=== PATIENT | male | born 1950 | race Caucasian/White ===

== ENCOUNTER 2020-08-07 12:27 | Outpatient (REF) | payer MEDICARE, SELFPAY ==
[2020-08-08 18:17] LABS: Lutenizing Hormone 4.9 mIU/mL (1.6-15.2)
== END 2020-08-07 12:28 | disposition home or self-care (01) ==
LOC: HO.WFDLDS 12:27
PROVIDERS: PCP Family Medicine; Visit Provider Family Medicine
DX: I10 Essential (primary) hypertension (principal); R20.3 Hyperesthesia; H53.9 Unspecified visual disturbance; R79.89 Other specified abnormal findings of blood chemistry
CPT/HCPCS: 83001; 83002; 84146

== ENCOUNTER 2021-12-10 11:56 | Outpatient (REF) | payer MEDICARE, SELFPAY ==
[2021-12-10 13:53] LABS: Alanine Aminotransferase 15 U/L (0-40); Albumin Level 4.1 g/dL (3.5-5.0); Alkaline Phosphatase 50 U/L (39-117); Anion Gap 12 (12-20); Aspartate Amino Transferase 21 U/L (5-37); Bilirubin Total 0.8 mg/dL (0.0-1.0); Blood Urea Nitrogen 14 mg/dL (9-16); Calcium 9.3 mg/dL (8.4-10.2); Carbon Dioxide 30 mmol/L (22-29); Chloride 103 mmol/L (96-108); Cholesterol 161 mg/dL; Estimated Glomerular Filt Rate > 60; Glucose Fasting 97 mg/dL (60-99); HDL Cholesterol 59 mg/dL; LDL Cholesterol Calculated 91 mg/dl; Potassium 4.2 mmol/L (3.3-5.1); Sodium 141 mmol/L (135-145); Total Protein 6.9 g/dL (6.5-8.0); Triglycerides 58 mg/dL
[2021-12-10 14:05] LABS: Appearance Urine CLEAR; Color Urine YELLOW; Glucose Urine UA NEG (NEG); Leukocyte Esterase Urine NEG (NEG); Nitrite Urine NEG (NEG); PH 7.5 (5.0-8.0); Specific Gravity - Urine 1.015 (1.005-1.025); Urine Blood NEG (NEG); Urine Ketones NEG (NEG); Urine Protein NEG (NEG-TRACE)
[2021-12-10 14:15] LABS: TSH reflex Free T4 1.01 uIU/mL (0.32-4.0)
[2021-12-10 14:29] LABS: Creatinine Urine 79.87 mg/dL; Microalbumin Urine < 5.0 mg/L
[2021-12-10 14:39] LABS: Prostate Specific Antigen Scr 0.68 ng/mL (<0.05-4.0)
== END 2021-12-10 11:57 | disposition home or self-care (01) ==
LOC: HO.WFDLDS 11:56
PROVIDERS: Visit Provider Family Medicine
DX: Z00.00 Encounter for general adult medical examination without abnormal findings (principal); Z12.5 Encounter for screening for malignant neoplasm of prostate; I10 Essential (primary) hypertension
CPT/HCPCS: 36415; 80053; 80061; 81003; 82043; 84153; 84443

== ENCOUNTER 2022-08-16 12:14 | Outpatient (REF) | payer MEDICARE, SELFPAY ==
[2022-08-19 22:12] LABS: Lyme Abs Screen <0.90 index
== END 2022-08-16 12:15 | disposition home or self-care (01) ==
LOC: HO.LAB 12:14
PROVIDERS: PCP Family Medicine; Visit Provider Family Medicine
DX: T14.8XXA Other injury of unspecified body region, initial encounter (principal); W57.XXXA Bitten or stung by nonvenomous insect and other nonvenomous arthropods, initial encounter
CPT/HCPCS: 36415; 86617; 86618

== ENCOUNTER 2023-04-22 15:29 | Outpatient (AMB) | payer MEDICARE, SELFPAY ==
--- NOTE | 2023-04-22 15:31 | A.OFFPC_ITS ---
Vital Signs 04/22/23 15:34 Height 5 ft 8 in Weight 152 lb 4 oz BMI 23.1 BP 98/64 Blood Pressure Location Lt brachial Position Sitting Respiration 12 Pulse 71 Pulse Source Pulse Oximeter Temp 98.1 F Temp Source Temporal Artery Scan Pulse Oximetry (%) 99 Oxygen Delivery Method Room Air Intake Visit Reasons: earwax removal Intake Note: Patient states that his right ear is the one giving problems, patient states hes tried softening the wax himself and attempted to remove it but was unsuccessful. 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 Accompanied by: Self / Same As Patient Allergies lisinopril Allergy (Unknown, Verified 04/22/23 15:48) cough Medication List - Last Reconciled 04/22/23 by Jonathan Brooks CNP atorvastatin 20 mg PO DAILY 90 days hydrochlorothiazide 25 mg PO DAILY losartan 100 mg PO DAILY 90 days Tobacco use date assessed: 01/09/22 Fall risk assessment: No Falls in past year Last assessed Fall Risk: 04/22/23 Dental Screening Dental Screen Date: 04/22/23 Did you have a dental visit in the last 12 months?: Yes Did you have a dental problem in the last 6 months where you did not have access to dental care?: No Was dental information given to patient?: Patient has dentist HPI HPI Comments History of Present Illness Details 72-year-old male presents with c/o impaired hearing of the right ear for the past few weeks. No pain or other symptoms He used an [id number] ear drops without improvement PFSH Surgical History (Updated 04/22/23 @ 15:51 by Mini Lopez MA) H/O microdiscectomy History of inguinal herniorrhaphy S/P ORIF (open reduction internal fixation) fracture Family History Family/Other Cardiovascular disease High cholesterol Mild late onset Alzheimer's dementia Sister Stroke Social History Housing: House Patient Tobacco Use Status: Never used Tobacco e-Cigarette/Vaping Use: Never Used Use of substances other than those prescribed or required for medical reasons: No service: No Current occupational status: retired Current occupational exposures/hazards: No Cognitive needs: No Hearing needs: Yes Vision needs: Yes Questionnaire PHQ-9 Over the last 2 weeks, how often have you been bothered by any of the following problems? 1. Little interest or pleasure in doing things: several days 2. Feeling down, depressed, or hopeless: several days 3. Trouble falling or staying asleep, or sleeping too much: not at all 4. Feeling tired or having little energy: not at all 5. Poor appetite or overeating: not at all 6. Feeling bad about yourself - or that you are a failure or have let yourself or your family down: not at all 7. Trouble concentrating on things, such as reading the newspaper or watching television: not at all 8. Moving or speaking so slowly that other people could have noticed. Or the opposite - being so fidgety or restless that you have been moving around a lot more than usual: not at all 9. Thoughts that you would be better off or of hurting yourself in some way: not at all Total score: 2 Source: Developed by Drs. Alireza Curry, Irena Caro, Michael Mackay and colleagues, with an educational lisa from [email or web address]. Thrive Questionnaire Date Thrive assessed: 04/22/23 I am a: Patient What is your living situation today?: I have a steady place to live Within the past 12 months, did the food you bought not last and you didn't have the money to get more?: Never true Within the past 12 months, did you worry whether your food would run out before you got money to buy more?: Never true Do you have trouble paying for medicines?: No Do you have trouble getting transportation to medical appointments?: No Do you have trouble paying your heating and electricity bill?: No Do you have trouble taking care of your child, family member or friend?: No Do you have trouble with day-to-day activities such as bathing, preparing meals, shopping, managing finances, etc.?: No Are you currently unemployed and looking for a job?: No Are you interested in more education?: No Please select the resources that you would like help with: None Currently or been in a relationship where the following occur: no concerns reported AUDIT C Alcohol Use Questionnaire (AUDIT-C) 1. How often do you have a drink containing alcohol?: 2-4 times a month 2. How many drinks containing alcohol do you have on a typical day when you are drinking?: 1 or 2 3. How often do you have six or more drinks on one occasion?: Never Total Score: 2 HILLARY-7 AMB Questionnaire HILLARY-7 Date HILLARY - 7 assessed: 04/22/23 Feeling nervous, anxious, or on edge: 0 = Not at all Not being able to stop or control worryin = Not at all Worrying too much about different things: 1 = Several days Trouble relaxin = Not at all Being so restless that it is hard to sit still: 0 = Not at all Becoming easily annoyed or irritable: 1 = Several days Feeling afraid as if something awful might happen: 0 = Not at all Total HILLARY-7 score (0-4 normal; 5-9 mild; 10-14 moderate; 15-21 severe): 2 Source: Developed by Drs. Alireza Curry, Irena Caro, Michael Mackay and colleagues, with an educational lisa from [email or web address]. Review of Systems Const Details: Const Denies chills, Denies fatigue, Denies fever(s), Denies headache(s) and Denies weakness ENT Reports as per HPI Resp Denies cough, Denies dyspnea, Denies wheezing and Denies other (shortness of breath) Cardio Denies chest pain, Denies lightheadedness, Denies dyspnea and Denies other (palpitations) Neuro Denies dizziness, Denies headache(s), Denies numbness, Denies tingling and Denies weakness Endo Denies fatigue Aller/Immun Denies wheezing Physical exam (Primary Care) Vital Signs: Last Vital Signs Temp 98.1 F 04/22/23 15:34 Pulse 71 04/22/23 15:34 Resp 12 04/22/23 15:34 BP 98/64 04/22/23 15:34 Pulse Ox 99 04/22/23 15:34 Oxygen Delivery Method Room Air 04/22/23 15:34 BMI result Body Mass Index 23.1 Tobacco/Smoking Status: Tobacco use Status Tobacco use date assessed 01/09/22 04/22/23 15:33 Patient Tobacco Use Status Never used Tobacco 04/22/23 15:54 e-Cigarette/Vaping Use Never Used 04/22/23 15:54 PHQ-9: PHQ-9 Score PHQ-9: Total score 2 04/22/23 16:00 Thrive Assessment: Date of Thrive Assessment Date Thrive assessed 04/22/23 04/22/23 16:00 Currently or been in a relationship where the following occur: no concerns reported Const Other: Const General: well developed; No acute distress Nutritional Appearance: well nourished Orientation/consciousness: patient oriented x3 HEENT Head is normocephalic Impacted cerumen of the right ear occluding the TM, no erythema, edema, or effusion, ear canal is normal. Left TM and ear canal is normal Nasal turbinates and oropharynx are pink and moist Sinuses are nontender with palpation No auricular or cervical lymphadenopathy Resp Effort & Inspection: normal respiratory effort Auscultation: clear to auscultation bilaterally Cardio Rate: regular rate Rhythm: regular rhythm Heart sounds: S1 normal heart sound present, S2 normal heart sound present, no gallops, no murmurs and no rubs Bruits: no abdominal aortic bruits and no carotid bruits Neuro General: patient oriented x3 and gait normal, no focal neuro deficit Cranial nerves: Yes Equal, round and reactive pupils present Psych Affect: normal affect Assessment and Plan Assessment & Plan (1) Impacted cerumen, right ear: Code(s): H61.21 - Impacted cerumen, right ear Plan: 72-year-old male presents with c/o impaired hearing of the right ear for the past few weeks. No pain or other symptoms Impacted cerumen of the right ear occluding the TM, no erythema, edema, or effusion, ear canal is normal. Left TM and ear canal is normal Normal right TM and ear canal following irrigation. Reports significant right hearing improvement Follow-up with symptoms or concerns Verbalized understanding and agreed with treatment plan. Medications: Changed From hydrochlorothiazide 25 mg PO DAILY 90 days 90 tabs 4RF To hydrochlorothiazide 25 mg PO DAILY Coding Level of Care Code Est Pt Level 3 (89181) Diagnoses Impacted cerumen, right ear H61.21 Time Spent (min) 25
[2023-04-22 15:34] VITALS: BP 98/64; PULSE 71; RESP 12; TEMP 36.7; O2SAT 99; BMI 23.1
== END 2023-04-22 16:35 | disposition home or self-care (01) ==
PROVIDERS: PCP Family Medicine; Visit Provider Nurse Practitioner Family
DX: H61.21 Impacted cerumen, right ear (principal)
CPT/HCPCS: 99213

== ENCOUNTER 2023-05-23 10:59 | Outpatient (AMB) | payer MEDICARE, SELFPAY ==
[2023-05-23 11:07] VITALS: BP 118/70; PULSE 70; O2SAT 97; BMI 22.7
--- NOTE | 2023-05-23 11:07 | A.OFFPC_ITS ---
Vital Signs 05/23/23 11:07 Height 5 ft 8 in Weight 149 lb BMI 22.7 BP 118/70 Blood Pressure Location Lt brachial Position Sitting Pulse 70 Pulse Source Pulse Oximeter Pulse Oximetry (%) 97 Oxygen Delivery Method Room Air Intake Visit Reasons: CPE with f/u labs and health maintenance Intake Note: Patient is here for his physical today, he states he has had fatigue, lighthea dedness, orthostatic during high temperatures. Patient has issue of a sebacious cyst that may need to be packed in. Allergies lisinopril Allergy (Unknown, Verified 05/23/23 11:18) cough Tobacco use date assessed: 01/09/22 Fall risk assessment: No Falls in past year Last assessed Fall Risk: 05/23/23 Dental Screening Dental Screen Date: 05/23/23 Did you have a dental visit in the last 12 months?: Yes Did you have a dental problem in the last 6 months where you did not have access to dental care?: No Was dental information given to patient?: No HPI CPE with f/u labs and health maintenance HPI Details 72 y/o male presents for an extended exam with f/u labs and health maintenance. No recent labs to review. Blood pressure today is 118/70. He is on hydrochlorothiazide 25mg and losartan 100mg daily. He reports fatigue that started about 3 weeks ago. He reports he had felt lightheaded and orthostatic during high temperatures. [facility] Surgical History (Updated 04/22/23 @ 15:51 by Mini Lopez MA) H/O microdiscectomy History of inguinal herniorrhaphy S/P ORIF (open reduction internal fixation) fracture Family History Family/Other Cardiovascular disease High cholesterol Mild late onset Alzheimer's dementia Sister Stroke Social History Housing: House Patient Tobacco Use Status: Never used Tobacco e-Cigarette/Vaping Use: Never Used service: No Current occupational status: retired Current occupational exposures/hazards: No Cognitive needs: No Hearing needs: Yes Vision needs: Yes Questionnaire Thrive Questionnaire Date Thrive assessed: 04/22/23 HILLARY-7 AMB Questionnaire HILLARY-7 Date HILLARY - 7 assessed: 04/22/23 Source: Developed by Irena BessW. Gordo, Michael Mackay and colleagues, with an educational lisa from [employer]. Review of Systems Const Denies chills, Denies fatigue, Denies fever(s), Denies headache(s) and Denies weakness Eyes Denies change in vision ENT Denies dizziness, Denies headache(s), Denies hearing loss, Denies nasal congestion, Denies sinus pain, Denies sinus pressure and Denies sore throat Card Denies chest pain, Denies lightheadedness, Denies dyspnea and Denies other (palpitations) Resp Denies cough, Denies dyspnea and Denies wheezing GI Denies abdominal pain, Denies melena, Denies hematochezia, Denies change in bowel habits, Denies dyspepsia and Denies nausea Denies hematuria and Denies dysuria Musc Denies abnormal gait, Denies myalgias, Denies arthralgias, Denies numbness and Denies tingling Skin/Breast Denies rash, Denies unusual bruising and Denies wounds Neuro Denies abnormal gait, Denies dizziness, Denies headache(s), Denies memory loss, Denies numbness, Denies Sensory deficit (Neuro), Denies tingling and Denies weakness Psych Denies anxiety, Denies depression and Denies memory loss Endo Denies cold intolerance, Denies fatigue, Denies heat intolerance, Denies polydipsia and Denies polyuria Donald/Lymph Denies easy bleeding and Denies easy bruising Aller/Immun Denies wheezing Physical exam (Primary Care) Vital Signs: Last Vital Signs Pulse 70 05/23/23 11:07 BP 118/70 05/23/23 11:07 Pulse Ox 97 05/23/23 11:07 Oxygen Delivery Method Room Air 05/23/23 11:07 BMI result Body Mass Index 22.7 Tobacco/Smoking Status: Tobacco use Status Tobacco use date assessed 01/09/22 05/23/23 11:09 Patient Tobacco Use Status Never used Tobacco 05/23/23 11:09 e-Cigarette/Vaping Use Never Used 05/23/23 11:09 Thrive Assessment: Date of Thrive Assessment Date Thrive assessed 04/22/23 05/23/23 11:09 Const General: no acute distress, well developed, alert and awake Nutritional Appearance: well nourished Orientation/consciousness: patient oriented x3 HENMT Head: Yes normocephalic and Yes atraumatic Ears: hearing grossly normal bilaterally and TM's normal bilaterally General nose exam: Normal external nose present and Normal nares present Mouth: Normal oral and palatal mucosa present and moist mucous membranes Teeth and gingiva: dentition normal Throat: Yes posterior oropharynx normal Eyes General: appearance normal, both eyes and all related structures Pupils: Equal, round and reactive pupils present and Pupil accommodation reflex normal EOM: EOMs intact bilaterally Neck Neck: Yes normal visual inspection, Yes no lymphadenopathy and Yes trachea midline Thyroid: Thyroid normal Carotids: no bruits Lymphatic: no lymphadenopathy noted Chest Chest palpation & inspection: normal inspection of the chest Resp Effort & Inspection: normal respiratory effort Auscultation: clear to auscultation bilaterally Cardio Rate: regular rate Rhythm: regular rhythm Heart sounds: S1 normal heart sound present, S2 normal heart sound present, no gallops, no murmurs and no rubs Bruits: no abdominal aortic bruits and no carotid bruits GI Palpation (GI): No Abdominal aortic bruit present, Soft to palpation, nontender, No hepatosplenomegaly present and No Rebound tenderness present Auscultation: normal bowel sounds General: Yes no CVA tenderness Back/Spine/Pelvis Back: no CVA tenderness Cervical Spine: cervical ROM normal and No Cervical spine tenderness Thoracic/Lumbar Spine: thoraco-lumbar ROM normal, No pain with thoraco-lumbar ROM, No thoracic spinal tenderness and No lumbar spinal tenderness Skin Other: Upper back Open wound 1.5cm in length and a cm in depth Lesions: no lesions Rashes: no rashes Trauma: no lacerations or abrasions Wounds: no wounds Nails: normal Neuro General: patient oriented x3 Cranial nerves: Yes Equal, round and reactive pupils present Cognition (Neuro): normal cognition Gait exam (Neuro): Normal gait present Motor exam (neuro): 5/5 motor strength present throughout Sensory Exam: No Sensory deficit (Neuro) Deep tendon reflexes (DTR's): Right patellar reflex intensity grade: 2+ and Left patellar reflex intensity grade: 2+ Extrem General: Yes normal to inspection and No edema Psych Appearance: grossly normal Affect: normal affect Attitude: cooperative Thought process: Normal thought process present Assessment and Plan Assessment & Plan (1) Open wound: Code(s): T14.8XXA - Other injury of unspecified body region, initial encounter Plan: Open wound at upper back after a sebaceous cyst excision Given the size, this is at high risk of infection or poor healing Mild fibrinous exudate in base of wound Prepped wound in usual fashion with iodine and a fenestrated drape Flushed wound with sterile water and packed wound with Xeroform gauze using forceps and swab on stick Applied Telfa pad dressing over wound and tape Patient tolerated procedure well He can apply new packing every 3 days and dressing changes daily Can shower and allow water to run over wound prior to changes of packing Watch for S/S infection He will return after his brief vacation for evaluation of the wound and if not improving, will refer him to Wound Care He can call me if any signs of infection and I will send script for an antibiotic. (2) Fatigue: Code(s): R53.83 - Other fatigue Plan: Patient had some mild fatigue a few weeks ago during severe hot weather and he is on hydrochlorothiazide. He noted that his blood pressures were rather low and held his blood pressure medications for few days. Hydrate well Blood pressure today is okay He can let me know if he is having ongoing problems with this Checking labs (3) Essential hypertension: Code(s): I10 - Essential (primary) hypertension Plan: Blood pressure appears well controlled. Goal is less than 140/90 Continue current medications (4) Screening for colon cancer: Code(s): Z12.11 - Encounter for screening for malignant neoplasm of colon Plan: His geology professor is Dr. Yao. Will request records and patient is due to follow-up I will make a referral (5) Screening for prostate cancer: Code(s): Z12.5 - Encounter for screening for malignant neoplasm of prostate Plan: Checking PSA. Digital rectal exam today reveals a normal sized prostate with smooth contours and no irregularities. (6) Sebaceous cyst: Code(s): L72.3 - Sebaceous cyst Plan: This was excised. Patient now has an open wound-see above (7) Adult general medical exam: Code(s): Z00.00 - Encounter for general adult medical examination without abnormal findings Plan: 72-year-old male presents for complete physical exam Encouraged healthy diet with active lifestyle and plenty of exercise Orders: Orders Comprehensive [place]. Panel Fast Today Z00.00 - Encounter for general adult medical examination without abnormal findings Lipid Panel Today Z00.00 - Encounter for general adult medical examination without abnormal findings Prostate Specific Antigen Scr Today Z12.5 - Encounter for screening for malignant neoplasm of prostate TSH reflex Free T4 Today Z00.00 - Encounter for general adult medical examinatio n without abnormal findings Microalbumin, Random (w Creat) Today I10 - Essential (primary) hypertension Complete Blood Count Auto Diff Today Z00.00 - Encounter for general adult medical examination without abnormal findings UA and rflx microscopic Today Z00.00 - Encounter for general adult medical examination without abnormal findings Coding Level of Care Code Est Pt Level 4 (97912) Diagnoses Open wound T14.8XXA Fatigue R53.83 Essential hypertension I10 Screening for colon cancer Z12.11 Screening for prostate cancer Z12.5 Sebaceous cyst L72.3 Adult general medical exam Z00.00
== END 2023-05-23 13:06 | disposition home or self-care (01) ==
PROVIDERS: PCP Family Medicine; Visit Provider Family Medicine
DX: T14.8XXA Other injury of unspecified body region, initial encounter (principal); R53.83 Other fatigue; I10 Essential (primary) hypertension; Z12.11 Encounter for screening for malignant neoplasm of colon; Z12.5 Encounter for screening for malignant neoplasm of prostate; L72.3 Sebaceous cyst; Z00.00 Encounter for general adult medical examination without abnormal findings
CPT/HCPCS: 99214

== ENCOUNTER 2023-05-26 11:49 | Outpatient (REF) | payer MEDICARE, SELFPAY ==
[2023-05-26 12:00] LABS: MANUAL DIFF FLAG NO
[2023-05-26 13:51] LABS: Basophils Absolute Auto 0.1 X10*3/uL (0.0-0.2); Eosinophils Absolute Auto 0.2 X10*3/uL (0.0-0.4); Eosinophils Percent Auto 4.7 % (0-4); Hematocrit 36.4 % (42.0-52.0); Hemoglobin 11.9 g/dl (14.0-18.0); Imm Gran Abs Auto 0.02 X10*3/uL (0.00-0.03); Imm Gran Pct Auto 0.4 % (0.0-0.4); Lymphocytes Absolute Auto 1.1 X10*3/uL (1.2-4.9); Lymphocytes Percent Auto 21.8 % (20-40); Mean Corpuscular HGB Conc 32.7 g/dl (31.0-36.0); Mean Corpuscular Hemoglobin 30.5 pg (27.0-33.0); Mean Corpuscular Volume 93.3 fL (80.0-98.0); Mean Platelet Volume 10.9 fL (9.4-12.4); Monocytes Absolute Auto 0.5 X10*3/uL (0.1-1.2); Monocytes Percent Auto 8.8 % (2-11); Neutrophils Absolute Auto 3.2 x10*3/uL (2.0-8.3); Neutrophils Percent Auto 63.3 % (45-73); Platelet Count 223 X10*3/uL (160-400); Red Cell Distribution Width 13.1 % (11.0-16.0); White Blood Count 5.1 X10*3/uL (4.8-10.8)
[2023-05-26 14:27] LABS: Appearance Urine Clear; Color Urine Dark Yellow; Glucose Urine UA Negative (Negative); Leukocyte Esterase Urine Negative (Negative); Nitrite Urine Negative (Negative); PH 5.5 (5.0-9.0); Specific Gravity - Urine >= 1.030 (1.005-1.025); Urine Blood Negative (Negative); Urine Ketones Trace mg/dL (Negative); Urine Protein Trace mg/dL (Neg-Trace)
[2023-05-26 14:54] LABS: Prostate Specific Antigen Scr 0.66 ng/mL (<0.05-4.0)
[2023-05-27 02:07] LABS: Alanine Aminotransferase 12 U/L (0-40); Albumin Level 3.9 g/dL (3.5-5.0); Alkaline Phosphatase 49 U/L (39-117); Anion Gap 13 (12-20); Aspartate Amino Transferase 17 U/L (5-37); Bilirubin Total 0.8 mg/dL (0.0-1.0); Blood Urea Nitrogen 18 mg/dL (9-16); Carbon Dioxide 27 mmol/L (22-29); Chloride 107 mmol/L (96-108); Cholesterol 137 mg/dL; Estimated Glomerular Filt Rate > 60; Glucose Fasting 85 mg/dL (60-99); HDL Cholesterol 51 mg/dL; LDL Cholesterol Calculated 77 mg/dl; Potassium 3.6 mmol/L (3.3-5.1); Sodium 143 mmol/L (135-145); TSH reflex Free T4 0.74 uIU/mL (0.32-4.0); Total Protein 6.7 g/dL (6.5-8.0); Triglycerides 47 mg/dL
[2023-05-27 02:42] LABS: Creatinine Urine 351.42 mg/dL; Microalbum/Creatinine Ratio Ur 3.9 ug/mg cr
== END 2023-05-26 11:50 | disposition home or self-care (01) ==
LOC: HO.LAB 11:49
PROVIDERS: PCP Family Medicine; Visit Provider Family Medicine
DX: Z00.00 Encounter for general adult medical examination without abnormal findings (principal); Z12.5 Encounter for screening for malignant neoplasm of prostate; I10 Essential (primary) hypertension
CPT/HCPCS: 36415; 80053; 80061; 81003; 82043; 84153; 84443; 85025

== ENCOUNTER 2023-05-26 13:40 | Outpatient (AMB) | payer MEDICARE, SELFPAY ==
[2023-05-26 13:48] VITALS: BP 108/64; PULSE 88; RESP 12; TEMP 36.7; O2SAT 99; BMI 22.6
--- NOTE | 2023-05-26 13:48 | MHC.PC.OV ---
Vital Signs 05/26/23 13:48 Height 5 ft 8 in Weight 148 lb 6 oz BMI 22.6 BP 108/64 Blood Pressure Location Rt brachial Position Sitting Respiration 12 Pulse 88 Pulse Source Pulse Oximeter Temp 98.1 F Temp Source Temporal Artery Scan Pulse Oximetry (%) 99 Oxygen Delivery Method Room Air Intake Visit Reasons: Wound Follow Up Dairy Chemist Required: No Accompanied by: Self / Same As Patient Allergies lisinopril Allergy (Unknown, Verified 05/26/23 14:13) cough Medication List - Last Reconciled 05/26/23 by Jonathan Brooks CNP atorvastatin 20 mg PO DAILY 90 days hydrochlorothiazide 25 mg PO DAILY losartan 100 mg PO DAILY 90 days Tobacco use date assessed: 05/26/23 Fall risk assessment: No Falls in past year Last assessed Fall Risk: 05/26/23 Dental Screening Dental Screen Date: 05/26/23 Did you have a dental visit in the last 12 months?: Yes Did you have a dental problem in the last 6 months where you did not have access to dental care?: No Was dental information given to patient?: Patient has dentist HPI HPI Comments History of Present Illness Details 72-year-old male presents for wound to upper back follow-up. He has an open wound to upper back after sebaceous excision. The wound was evaluated and treated by his PCP 4 days ago. Wound was packed with Xeroform gauze by his PCP, followed by Telfa and dry sterile dressing. Patient was advised to perform wound care and dressing change daily and apply new packing every 3 days. He was advised to return for follow-up or concerns of wound infection. He notes he has not changed the dressing. He denies pain, fever, chills, body aches, fatigue, weakness. He states that he will be traveling out of state on Friday and will return next Friday. He will follow-up for wound evaluation when he returns. [facility] Medical History No pertinent past medical history Surgical History H/O microdiscectomy H/O total cystectomy History of inguinal herniorrhaphy S/P ORIF (open reduction internal fixation) fracture Family History Family/Other Cardiovascular disease High cholesterol Mild late onset Alzheimer's dementia Sister Stroke Social History Housing: House Patient Tobacco Use Status: Never used Tobacco e-Cigarette/Vaping Use: Never Used service: No Current occupational status: retired Current occupational exposures/hazards: No Cognitive needs: No Hearing needs: No Vision needs: No Questionnaire Thrive Questionnaire Date Thrive assessed: 04/22/23 HILLARY-7 AMB Questionnaire HILLARY-7 Date HILLARY - 7 assessed: 04/22/23 Source: Developed by Drs. Alireza Curry, Irena Caro, Michael Mackay and colleagues, with an educational lisa from [employer]. Review of Systems Const Details: Const Denies chills, Denies fatigue, Denies fever(s), Denies headache(s) and Denies weakness ENT Denies dizziness and Denies headache(s) Card Denies chest pain, Denies lightheadedness, Denies dyspnea and Denies other (Palpitations) Resp Denies cough, Denies dyspnea, Denies wheezing and Denies other ( shortness of breath) GI Denies abdominal pain, Denies melena, Denies hematochezia, Denies change in bowel habits, Denies dyspepsia and Denies nausea Denies hematuria and Denies dysuria Musc Denies abnormal gait, Denies myalgias, Denies arthralgias, Denies numbness and Denies tingling Skin/Breast Reports wound, Denies rash, Denies unusual bruising Neuro Denies abnormal gait, Denies dizziness, Denies headache(s), Denies memory loss, Denies numbness, Denies Sensory deficit (Neuro), Denies tingling and Denies weakness Psych Denies anxiety, Denies depression, Denies memory loss Endo Denies cold intolerance, Denies fatigue, Denies heat intolerance, Denies polydipsia and Denies polyuria Aller/Immun Denies wheezing Physical exam (Primary Care) Vital Signs: Last Vital Signs Temp 98.1 F 05/26/23 13:48 Pulse 88 05/26/23 13:48 Resp 12 05/26/23 13:48 BP 108/64 05/26/23 13:48 Pulse Ox 99 05/26/23 13:48 Oxygen Delivery Method Room Air 05/26/23 13:48 BMI result Body Mass Index 22.6 Tobacco/Smoking Status: Tobacco use Status Tobacco use date assessed 05/26/23 05/26/23 13:57 Patient Tobacco Use Status Never used Tobacco 05/26/23 13:57 e-Cigarette/Vaping Use Never Used 05/26/23 13:57 Thrive Assessment: Date of Thrive Assessment Date Thrive assessed 04/22/23 05/26/23 13:57 Const Other: General: no acute distress and well developed Nutritional Appearance: well nourished Orientation/consciousness: patient oriented x3 HENMT Head: Yes normocephalic and Yes atraumatic Eyes General: appearance normal, both eyes and all related structures Pupils: Equal, round and reactive pupils present EOM: EOMs intact bilaterally Resp Effort & Inspection: normal respiratory effort Auscultation: clear to auscultation bilaterally Cardio Rate: regular rate Rhythm: regular rhythm Heart sounds: S1 normal heart sound present, S2 normal heart sound present, no gallops, no murmurs and no rubs GI Palpation (GI): No Abdominal aortic bruit present, Soft to palpation, nontender, No hepatosplenomegaly present and No Rebound tenderness present Auscultation: normal bowel sounds General: Yes no CVA tenderness Back/Spine/Pelvis Back: no CVA tenderness Cervical Spine: cervical ROM normal and No Cervical spine tenderness Thoracic/Lumbar Spine: thoraco-lumbar ROM normal, No pain with thoraco-lumbar ROM, No thoracic spinal tenderness and No lumbar spinal tenderness Extrem General: Yes normal to inspection, No edema and No calf tenderness Skin General: warm and dry. Normal skin color. Normal skin turgor Lesions: no lesions Rashes: no rashes Trauma: no lacerations or abrasions Wounds: Old dressing removed from left upper back wound with significant serosanguineous drainage noted. Wound is 2 cm in length and 1 cm in depth; bed and surrounding skin is pink; no active drainage or overt infection. Nails: normal Neuro General: patient oriented x3, gait normal and no focal neuro deficit Cranial nerves: Yes Equal, round and reactive pupils present Cognition (Neuro): normal cognition Gait exam (Neuro): Normal gait present Sensory Exam: No Sensory deficit (Neuro) Psych Appearance: grossly normal Affect: normal affect Attitude: cooperative Thought process: Normal thought process present Assessment and Plan Assessment & Plan (1) Open wound: Code(s): T14.8XXA - Other injury of unspecified body region, initial encounter Plan: Old dressing removed from left upper back wound with significant serosanguineous drainage noted. Wound is 2 cm in length and 1 cm in depth; bed and surrounding skin is pink; no active drainage or overt infection. Wound packed with wet sterile gauze and covered with dry sterile gauze. Encouraged to change dressing daily and to pack wound every other day. Referred to Wound Clinic. Follow-up with PCP as planned or return sooner with concerns or symptoms of infection Verbalized understanding and agreed with treatment plan. Orders: Referrals Wound Care Referral T14.8XXA - Other injury of unspecified body region, initial encounter Coding Level of Care Code Est Pt Level 3 (29335) Diagnoses Open wound T14.8XXA Time Spent (min) 25
== END 2023-05-26 14:33 | disposition home or self-care (01) ==
PROVIDERS: PCP Family Medicine; Visit Provider Nurse Practitioner Family
DX: T14.8XXA Other injury of unspecified body region, initial encounter (principal)
CPT/HCPCS: 99213

== ENCOUNTER 2023-06-03 15:32 | Outpatient (AMB) | payer MEDICARE, SELFPAY ==
[2023-06-03 15:34] VITALS: BP 98/66; PULSE 65; O2SAT 98; BMI 23.0
--- NOTE | 2023-06-03 15:34 | A.OFFPC_ITS ---
Vital Signs 06/03/23 15:34 Height 5 ft 8 in Weight 151 lb 2 oz BMI 23.0 BP 98/66 Blood Pressure Location Lt brachial Position Sitting Pulse 65 Pulse Source Pulse Oximeter Pulse Oximetry (%) 98 Oxygen Delivery Method Room Air Intake Visit Reasons: Follow-up open wound on back Intake Note: Patient is here for wound check Allergies lisinopril Allergy (Unknown, Verified 06/03/23 15:40) cough Tobacco use date assessed: 06/03/23 Fall risk assessment: No Falls in past year Last assessed Fall Risk: 06/03/23 Dental Screening Dental Screen Date: 06/03/23 Did you have a dental visit in the last 12 months?: Yes Did you have a dental problem in the last 6 months where you did not have access to dental care?: No Was dental information given to patient?: Patient has dentist HPI Follow-up open wound on back HPI Details 72 y/o male presents to evaluate open wound on his back. Had been referred to wound care. [facility] Medical History No pertinent past medical history Surgical History H/O microdiscectomy H/O total cystectomy History of inguinal herniorrhaphy S/P ORIF (open reduction internal fixation) fracture Family History Family/Other Cardiovascular disease High cholesterol Mild late onset Alzheimer's dementia Sister Stroke Social History Housing: House Patient Tobacco Use Status: Never used Tobacco e-Cigarette/Vaping Use: Never Used service: No Current occupational status: retired Current occupational exposures/hazards: No Cognitive needs: No Hearing needs: No Vision needs: No Questionnaire Thrive Questionnaire Date Thrive assessed: 04/22/23 HILLARY-7 AMB Questionnaire HILLARY-7 Date HILLARY - 7 assessed: 04/22/23 Source: Developed by Drs. Alireza Curry, Irena Caro, Michael Mackay and colleagues, with an educational lisa from [employer]. Physical exam (Primary Care) Vital Signs: Last Vital Signs Pulse 65 06/03/23 15:34 BP 98/66 06/03/23 15:34 Pulse Ox 98 06/03/23 15:34 Oxygen Delivery Method Room Air 06/03/23 15:34 BMI result Body Mass Index 23.0 Tobacco/Smoking Status: Tobacco use Status Tobacco use date assessed 06/03/23 06/03/23 15:48 Patient Tobacco Use Status Never used Tobacco 06/03/23 15:39 e-Cigarette/Vaping Use Never Used 06/03/23 15:39 Thrive Assessment: Date of Thrive Assessment Date Thrive assessed 04/22/23 06/03/23 15:39 Skin Other: Wound edges are clean, tissue is non nectrotic and non infected Assessment and Plan Assessment & Plan (1) Open wound: Code(s): T14.8XXA - Other injury of unspecified body region, initial encounter Plan: Open wound at upper back and patient has had a friend packing this No fibrinous exudate, no purulent material or erythema. Wound appears improved but is still rather deep. Packing material was removed and wound was irrigated with sterile water. Replaced packing material Patient tolerated this well He will continue dressing changes until he sees wound care He will call for any evidence of Infection (2) Normocytic anemia: Code(s): D64.9 - Anemia, unspecified Plan: Mild normocytic anemia Denies any bleeding Recheck in 3 months (3) Essential hypertension: Code(s): I10 - Essential (primary) hypertension Plan: Blood pressure is a little low today He has been increasing his exercise No dizziness or weakness Will recheck at his next visit and if as low or lower, will ease up on his blood pressure medications Coding Level of Care Code Est Pt Level 4 (36510) Diagnoses Open wound T14.8XXA Normocytic anemia D64.9 Essential hypertension I10
== END 2023-06-03 16:33 | disposition home or self-care (01) ==
PROVIDERS: PCP Family Medicine; Visit Provider Family Medicine
DX: T14.8XXA Other injury of unspecified body region, initial encounter (principal); D64.9 Anemia, unspecified; I10 Essential (primary) hypertension
CPT/HCPCS: 99214

== ENCOUNTER 2023-06-12 07:50 | Outpatient (RCR) | payer MEDICARE, SELFPAY | END 2023-07-15 16:10 | disposition home or self-care (01) | LOC: HO.WCC 07:50 | PROVIDERS: PCP Family Medicine; Visit Provider Surgery | DX: S21.202A Unspecified open wound of left back wall of thorax without penetration into thoracic cavity, initial encounter (principal); I10 Essential (primary) hypertension; F12.90 Cannabis use, unspecified, uncomplicated | CPT/HCPCS: 97597 ==

== ENCOUNTER 2023-09-19 09:18 | Outpatient (REF) | payer MEDICARE, SELFPAY ==
[2023-09-19 12:16] LABS: MANUAL DIFF FLAG NO
[2023-09-19 12:34] LABS: Basophils Absolute Auto 0.1 X10*3/uL (0.0-0.2); Basophils Percent Auto 1.1 % (0-2); Eosinophils Absolute Auto 0.3 X10*3/uL (0.0-0.4); Eosinophils Percent Auto 4.8 % (0-4); Hematocrit 36.1 % (42.0-52.0); Hemoglobin 11.8 g/dl (14.0-18.0); Imm Gran Abs Auto 0.01 X10*3/uL (0.00-0.03); Imm Gran Pct Auto 0.2 % (0.0-0.4); Immature Retic Fraction 7.4 % (2.3-13.4); Lymphocytes Absolute Auto 1.2 X10*3/uL (1.2-4.9); Mean Corpuscular HGB Conc 32.7 g/dl (31.0-36.0); Mean Corpuscular Hemoglobin 31.1 pg (27.0-33.0); Mean Corpuscular Volume 95.3 fL (80.0-98.0); Mean Platelet Volume 11.2 fL (9.4-12.4); Monocytes Absolute Auto 0.5 X10*3/uL (0.1-1.2); Monocytes Percent Auto 8.6 % (2-11); Neutrophils Absolute Auto 3.6 x10*3/uL (2.0-8.3); Neutrophils Percent Auto 63.3 % (45-73); Platelet Count 210 X10*3/uL (160-400); Red Blood Count 3.79 X10*6/uL (4.60-5.80); Reticulocyte Percent 1.1 % (0.5-1.8); Reticulocytes Absolute 0.043 X10*6/uL (0.026-0.095); White Blood Count 5.6 X10*3/uL (4.8-10.8)
[2023-09-19 13:18] LABS: Anion Gap 11 (12-20); Blood Urea Nitrogen 20 mg/dL (9-16); Calcium 8.7 mg/dL (8.4-10.2); Carbon Dioxide 29 mmol/L (22-29); Chloride 106 mmol/L (96-108); Estimated Glomerular Filt Rate > 60; Glucose Random 95 mg/dL (60-115); Iron 47 mcg/dL (45-160); Percent Iron Saturation 16 % (15-50); Potassium 3.8 mmol/L (3.3-5.1); Sodium 142 mmol/L (135-145); Total Iron Binding Capacity 291 mcg/dL (228-428); Unsaturated Iron Binding 244 ug/dL
[2023-09-19 13:28] LABS: Folate 7.7 ng/mL (> or = 4.0); Vitamin B12 370 pg/mL (200-900)
[2023-09-19 13:50] LABS: Ferritin 10 ng/mL (20-250)
== END 2023-09-19 09:19 | disposition home or self-care (01) ==
LOC: HO.WFDLDS 09:18
PROVIDERS: Visit Provider Family Medicine
DX: Z00.00 Encounter for general adult medical examination without abnormal findings (principal); E53.8 Deficiency of other specified B group vitamins; D64.9 Anemia, unspecified
CPT/HCPCS: 36415; 80048; 82607; 82728; 82746; 83540; 85025; 85045

== ENCOUNTER 2023-10-01 08:42 | Outpatient (AMB) | payer MEDICARE, SELFPAY ==
--- NOTE | 2023-10-01 08:49 | MHC.PC.OV ---
Vital Signs 10/01/23 08:53 Height 5 ft 8 in Weight 152 lb 4 oz BMI 23.1 BP 122/70 Blood Pressure Location Rt brachial Position Sitting Pulse 62 Pulse Source Pulse Oximeter Pulse Oximetry (%) 98 Oxygen Delivery Method Room Air Intake Visit Reasons: f/u mild anemia Intake Note: Patient is here for follow up on mild anemia. Allergies lisinopril Allergy (Unknown, Verified 10/01/23 08:51) cough Tobacco use date assessed: 10/01/23 Fall risk assessment: No Falls in past year Last assessed Fall Risk: 10/01/23 HPI f/u mild anemia HPI Details 73 y/o male presents to f/u mild anemia. Labs were drawn 09/19/23. Reviewed labs with pt. Ongoing mild anemia. Blood pressure today 122/70. He is on hydrochlorothiazide 25mg and losartan 100mg daily. [facility] Medical History No pertinent past medical history Surgical History H/O total cystectomy H/O microdiscectomy S/P ORIF (open reduction internal fixation) fracture History of inguinal herniorrhaphy Family History Family/Other Cardiovascular disease High cholesterol Mild late onset Alzheimer's dementia Sister Stroke Social History Housing: House Patient Tobacco Use Status: Never used Tobacco e-Cigarette/Vaping Use: Never Used service: No Current occupational status: retired Current occupational exposures/hazards: No Cognitive needs: No Hearing needs: No Vision needs: No Questionnaire Thrive Questionnaire Date Thrive assessed: 04/22/23 HILLARY-7 AMB Questionnaire HILLARY-7 Date HILLARY - 7 assessed: 04/22/23 Source: Developed by Drs. Alireza Curry, Irena Caro, Michael Mackay and colleagues, with an educational lisa from [employer]. Review of Systems Const Denies chills, Denies fatigue, Denies fever(s), Denies headache(s) and Denies weakness ENT Denies dizziness and Denies headache(s) Card Denies dyspnea Resp Denies cough, Denies dyspnea, Denies wheezing and Denies other (shortness of breath) Musc Denies numbness and Denies tingling Neuro Denies dizziness, Denies headache(s), Denies numbness, Denies tingling and Denies weakness Psych Denies anxiety and Denies depression Endo Denies fatigue Aller/Immun Denies wheezing Physical exam (Primary Care) Vital Signs: Last Vital Signs Pulse 62 10/01/23 08:53 BP 122/70 10/01/23 08:53 Pulse Ox 98 10/01/23 08:53 Oxygen Delivery Method Room Air 10/01/23 08:53 BMI result Body Mass Index 23.1 Tobacco/Smoking Status: Tobacco use Status Tobacco use date assessed 10/01/23 10/01/23 08:52 Patient Tobacco Use Status Never used Tobacco 10/01/23 08:52 e-Cigarette/Vaping Use Never Used 10/01/23 08:52 Thrive Assessment: Date of Thrive Assessment Date Thrive assessed 04/22/23 10/01/23 08:52 Const General: well developed; No acute distress Nutritional Appearance: well nourished Orientation/consciousness: patient oriented x3 [facility] Head: Yes normocephalic and Yes atraumatic Eyes General: appearance normal, both eyes and all related structures Pupils: Equal, round and reactive pupils present EOM: EOMs intact bilaterally Resp Effort & Inspection: normal respiratory effort Neuro General: patient oriented x3 and gait normal Cranial nerves: Yes Equal, round and reactive pupils present Psych Affect: normal affect Assessment and Plan Assessment & Plan (1) Essential hypertension: Code(s): I10 - Essential (primary) hypertension Plan: Controlled.??Goal?is?less?than?140/90 Continue?current?medication?regimen (2) Normocytic anemia: Code(s): D64.9 - Anemia, unspecified Plan: Ongoing?mild?normocytic?anemia. Other?cell?lines?were?within?normal?limits Retic?count?is?inappropriately?low?and?iron?is?borderline?low?with?low?ferritin. This?appears?to?be?a?mild?iron?deficiency?anemia He?will?trial?OTC?iron Repeat?labs?in?about?3?months Orders: Orders Ferritin Today D64.9 - Anemia, unspecified IRON PROFILE Today D64.9 - Anemia, unspecified Reticulocyte Count Today D64.9 - Anemia, unspecified Comprehensive Met. Panel Today D64.9 - Anemia, unspecified Complete Blood Count Auto Diff Today D64.9 - Anemia, unspecified, Z00.00 - Encounter for general adult medical examination without abnormal findings Coding Level of Care Code Est Pt Level 3 (17516) Diagnoses Essential hypertension I10 Normocytic anemia D64.9
[2023-10-01 08:53] VITALS: BP 122/70; PULSE 62; O2SAT 98; BMI 23.1
== END 2023-10-01 09:32 | disposition home or self-care (01) ==
PROVIDERS: PCP Family Medicine; Visit Provider Family Medicine
DX: I10 Essential (primary) hypertension (principal); D64.9 Anemia, unspecified
CPT/HCPCS: 99213

== ENCOUNTER 2024-03-04 10:25 | Outpatient (AMB) | payer MEDICARE, SELFPAY ==
--- NOTE | 2024-03-04 11:02 | AM.OFFWIN_ITS ---
Intake Vital Signs 03/04/24 11:03 Height 5 ft 8 in Weight 155 lb 2 oz BMI 23.6 BP 98/62 Blood Pressure Location Lt radial Position Sitting Respiration 14 Pulse 62 Pulse Source Pulse Oximeter Temp 97.6 F Temp Source Oral Intake Visit Reasons: Robinson disease Intake Note: Tick bite 3 days ago. Lower left abdomen. Patient Tobacco Use Status: Never used Tobacco Allergies lisinopril Allergy (Unknown, Verified 03/04/24 11:03) cough Do you need a note to return to daycare/school/sports/work: No HPI Robinson disease HPI Details Patient is a 73-year-old male who presents today with complaints of a possible infected tick bite. He states that 3 or 4 days ago he removed a tick from his left lower abdomen. He states it was fully imbedded and he does not know how long it was attached for. He was able to remove the tick but did break the skin a bit in removing the tick. He states that a couple days after he removed the tick his skin became red and irritated. He has not sure if the redness is getting larger and states it is hard to see that area. No previous history of Lyme disease. Was tested in 2021. He denies any fever, chills, headache, vision changes, bull's-eye rash. Overall feels fine. [facility] Medical History No pertinent past medical history Surgical History H/O total cystectomy H/O microdiscectomy S/P ORIF (open reduction internal fixation) fracture History of inguinal herniorrhaphy Family History Family/Other Cardiovascular disease High cholesterol Mild late onset Alzheimer's dementia Sister Stroke Social History Housing: House Patient Tobacco Use Status: Never used Tobacco e-Cigarette/Vaping Use: Never Used service: No Current occupational status: retired Current occupational exposures/hazards: No Cognitive needs: No Hearing needs: No Vision needs: No Physical Exam Vital Signs: Last Vital Signs Temp 97.6 F 05/23/24 11:03 Pulse 62 03/04/24 11:03 Resp 14 03/04/24 11:03 BP 98/62 03/04/24 11:03 BMI result Body Mass Index 23.6 Const Orientation/consciousness: patient oriented x3 HEENT Ears: hearing grossly normal bilaterally Neck Thyroid: Thyroid normal Lymphatic: no lymphadenopathy noted Resp Auscultation: clear to auscultation bilaterally Cardio Rate: regular rate Rhythm: regular rhythm Heart sounds: S1 normal heart sound present and S2 normal heart sound present Skin Other: There is a quarter-sized, circular, well-demarcated, erythematous area noted on the left lower abdomen with a central scab. No area of induration or fluctuance noted. Neuro General: patient oriented x3, gait normal and no focal motor deficits Assessment & Plan Assessment & Plan (1) Infected tick bite of abdominal wall: Code(s): S30.861A - Insect bite (nonvenomous) of abdominal wall, initial encounter; L08.9 - Local infection of the skin and subcutaneous tissue, unspecified; W57.XXXA - Bitten or stung by nonvenomous insect and other nonvenomous arthropods, initial encounter Qualifiers: Encounter type: initial encounter Qualified Code(s): S30.861A - Insect bite (nonvenomous) of abdominal wall, initial encounter; L08.9 - Local infection of the skin and subcutaneous tissue, unspecified; W57.XXXA - Bitten or stung by nonvenomous insect and other nonvenomous arthropods, initial encounter Plan: We will start patient on doxycycline for a cellulitis. Discussed risks and benefits and adverse effects of this medication including a photosensitivity rash and GI upset. Advised patient return in 6 weeks for a Lyme test. Sooner if anything worsens or changes. Patient understands and agrees with the plan. Orders: Orders Lyme IgG/IgM w/reflex to WB Today L08.9 - Local infection of the skin and subcutaneous tissue, unspecified, S30.861A - Insect bite (nonvenomous) of abdominal wall, initial encounter, W57.XXXA - Bitten or stung by nonvenomous insect and other nonvenomous arthropods, initial encounter Medications: New doxycycline hyclate 100 mg PO BID 20 tabs 0RF Coding Level of Care Code Est Pt Level 3 (00209) Diagnoses Infected tick bite of abdominal wall, initial encounter S30.861A; L08.9; W57.XXXA Encounter type: initial encounter
[2024-03-04 11:03] VITALS: BP 98/62; PULSE 62; RESP 14; TEMP 36.4; BMI 23.6
== END 2024-03-04 11:40 | disposition home or self-care (01) ==
PROVIDERS: PCP Family Medicine; Visit Provider Physician Assistant
DX: S30.861A Insect bite (nonvenomous) of abdominal wall, initial encounter (principal); L08.9 Local infection of the skin and subcutaneous tissue, unspecified; W57.XXXA Bitten or stung by nonvenomous insect and other nonvenomous arthropods, initial encounter
CPT/HCPCS: 99213

== ENCOUNTER 2024-04-19 12:46 | Outpatient (REF) | payer MEDICARE, SELFPAY ==
[2024-04-19 13:11] LABS: MANUAL DIFF FLAG NO
[2024-04-19 14:48] LABS: Basophils Absolute Auto 0.1 X10*3/uL (0.0-0.2); Basophils Percent Auto 1.3 % (0-2); Eosinophils Absolute Auto 0.2 X10*3/uL (0.0-0.4); Eosinophils Percent Auto 3.8 % (0-4); Hematocrit 37.4 % (42.0-52.0); Hemoglobin 12.5 g/dl (14.0-18.0); Imm Gran Abs Auto 0.01 X10*3/uL (0.00-0.03); Imm Gran Pct Auto 0.2 % (0.0-0.4); Immature Retic Fraction 6.9 % (2.3-13.4); Lymphocytes Absolute Auto 1.5 X10*3/uL (1.2-4.9); Lymphocytes Percent Auto 32.5 % (20-40); Mean Corpuscular HGB Conc 33.4 g/dl (31.0-36.0); Mean Corpuscular Volume 95.7 fL (80.0-98.0); Mean Platelet Volume 10.9 fL (9.4-12.4); Monocytes Absolute Auto 0.4 X10*3/uL (0.1-1.2); Monocytes Percent Auto 8.7 % (2-11); Neutrophils Absolute Auto 2.5 x10*3/uL (2.0-8.3); Neutrophils Percent Auto 53.5 % (45-73); Platelet Count 191 X10*3/uL (160-400); Red Blood Count 3.91 X10*6/uL (4.60-5.80); Retic HGB Equivalent 34.8 pg (30.0-35.0); Reticulocyte Percent 1.5 % (0.5-1.8); Reticulocytes Absolute 0.058 X10*6/uL (0.026-0.095); White Blood Count 4.7 X10*3/uL (4.8-10.8)
[2024-04-19 15:29] LABS: Alanine Aminotransferase 15 U/L (0-40); Albumin Level 3.8 g/dL (3.5-5.0); Alkaline Phosphatase 49 U/L (39-117); Anion Gap 12 (12-20); Aspartate Amino Transferase 20 U/L (5-37); Bilirubin Total 0.9 mg/dL (0.0-1.0); Blood Urea Nitrogen 13 mg/dL (9-16); Carbon Dioxide 27 mmol/L (22-29); Chloride 107 mmol/L (96-108); Estimated Glomerular Filt Rate > 60; Ferritin 27 ng/mL (20-250); Glucose Random 87 mg/dL (60-115); Iron 93 mcg/dL (45-160); Percent Iron Saturation 38 % (15-50); Potassium 3.8 mmol/L (3.3-5.1); Sodium 142 mmol/L (135-145); Total Iron Binding Capacity 244 mcg/dL (228-428); Total Protein 6.3 g/dL (6.5-8.0); Unsaturated Iron Binding 151 ug/dL
[2024-04-20 17:38] LABS: Lyme Abs Screen <0.90 index
== END 2024-04-19 12:47 | disposition home or self-care (01) ==
LOC: HO.LAB 12:46
PROVIDERS: Absent Provider Physician Assistant; PCP Family Medicine; Visit Provider Family Medicine
DX: Z00.00 Encounter for general adult medical examination without abnormal findings (principal); D64.9 Anemia, unspecified; S30.861A Insect bite (nonvenomous) of abdominal wall, initial encounter; L08.9 Local infection of the skin and subcutaneous tissue, unspecified; T14.8XXA Other injury of unspecified body region, initial encounter; W57.XXXA Bitten or stung by nonvenomous insect and other nonvenomous arthropods, initial encounter
CPT/HCPCS: 36415; 80053; 82728; 83540; 85025; 85045; 86617; 86618

== ENCOUNTER 2024-04-20 10:30 | Outpatient (AMB) | payer MEDICARE, SELFPAY ==
[2024-04-20 10:45] VITALS: BP 98/60; PULSE 58; O2SAT 98; BMI 23.3
--- NOTE | 2024-04-20 10:45 | A.OFFPC_ITS ---
Vital Signs 04/20/24 10:45 Height 5 ft 8 in Weight 153 lb 2 oz BMI 23.3 BP 98/60 Blood Pressure Location Lt brachial Position Sitting Pulse 58 Pulse Source Pulse Oximeter Pulse Oximetry (%) 98 Oxygen Delivery Method Room Air Intake Visit Reasons: f/u mild anemia,htn Intake Note: Patient is here to follow up on hypertension and anemia. Patient is requesting refill of Atorvastatin, hydrochorothiszide, and Losartan. Patient has concern of fatigue and forgetfulness. Allergies lisinopril Allergy (Unknown, Verified 04/20/24 10:48) cough Tobacco use date assessed: 04/20/24 Fall risk assessment: No Falls in past year Last assessed Fall Risk: 04/20/24 Dental Screening Dental Screen Date: 06/03/23 Did you have a dental visit in the last 12 months?: Yes Did you have a dental problem in the last 6 months where you did not have access to dental care?: No Was dental information given to patient?: Patient has dentist HPI f/u mild anemia,htn HPI Details 73 y/o male presents to f/u hypertension and mild normocytic anemia. Retic count had been inappropriately low and iron stores had been at borderline normal/low level and low ferritin. Had recommended him to take OTC iron. Blood pressure today 98/60. He is on losartan 100mg, hydrochlorothiazide 25mg daily. Labs were drawn 04/19/24. Reviewed labs with pt. Mild anemia improving. Ferretin level improved from 10 L to 27. Iron level improved from 47 to 93. Pt reports fatigue and forgetfulness today. [facility] Medical History No pertinent past medical history Surgical History H/O total cystectomy H/O microdiscectomy S/P ORIF (open reduction internal fixation) fracture History of inguinal herniorrhaphy Family History (Updated 04/20/24 @ 10:52 by Maddison Croft CMA) Family/Other Cardiovascular disease High cholesterol Mild late onset Alzheimer's dementia Sister Stroke Brother Substance abuse in family Social History Housing: House Patient Tobacco Use Status: Never used Tobacco e-Cigarette/Vaping Use: Never Used service: No Current occupational status: retired Current occupational exposures/hazards: No Cognitive needs: No Hearing needs: No Vision needs: No Questionnaire PHQ-9 Over the last 2 weeks, how often have you been bothered by any of the following problems? 1. Little interest or pleasure in doing things: not at all 2. Feeling down, depressed, or hopeless: several days 3. Trouble falling or staying asleep, or sleeping too much: not at all 4. Feeling tired or having little energy: more than half the days 5. Poor appetite or overeating: nearly every day 6. Feeling bad about yourself - or that you are a failure or have let yourself or your family down: not at all 7. Trouble concentrating on things, such as reading the newspaper or watching television: nearly every day 8. Moving or speaking so slowly that other people could have noticed. Or the opposite - being so fidgety or restless that you have been moving around a lot more than usual: not at all 9. Thoughts that you would be better off or of hurting yourself in some way: not at all Total score: 9 Depression Screening Interpretation: Positive Depression Screening Done: Yes Source: Developed by Drs. Alireza Curry, Irena Caro, Michael Mackay and colleagues, with an educational lisa from [employer]. Thrive Questionnaire Date Thrive assessed: 04/20/24 I am a: Patient What is your living situation today?: I have a steady place to live Within the past 12 months, did the food you bought not last and you didn't have the money to get more?: Never true Within the past 12 months, did you worry whether your food would run out before you got money to buy more?: Never true Do you have trouble paying for medicines?: No Do you have trouble getting transportation to medical appointments?: No Do you have trouble paying your heating and electricity bill?: No Do you have trouble taking care of your child, family member or friend?: No Do you have trouble with day-to-day activities such as bathing, preparing meals, shopping, managing finances, etc.?: No Are you currently unemployed and looking for a job?: No Are you interested in more education?: No THRIVE Score: 0 AUDIT C Alcohol Use Questionnaire (AUDIT-C) 1. How often do you have a drink containing alcohol?: Monthly or less 2. How many drinks containing alcohol do you have on a typical day when you are drinking?: 1 or 2 3. How often do you have six or more drinks on one occasion?: Never Total Score: 1 HILLARY-7 AMB Questionnaire HILLARY-7 Date HILLARY - 7 assessed: 04/20/24 Feeling nervous, anxious, or on edge: 0 = Not at all Not being able to stop or control worryin = Not at all Worrying too much about different things: 0 = Not at all Trouble relaxin = Several days Being so restless that it is hard to sit still: 0 = Not at all Becoming easily annoyed or irritable: 1 = Several days Feeling afraid as if something awful might happen: 0 = Not at all Total HILLARY-7 score (0-4 normal; 5-9 mild; 10-14 moderate; 15-21 severe): 2 Source: Developed by Drs. Alireza Curry, Irena Caro, Michael Mackay and colleagues, with an educational lisa from [employer]. Review of Systems Const Reports fatigue, Denies headache(s) and Denies weakness ENT Denies dizziness and Denies headache(s) Card Denies dyspnea Resp Denies cough, Denies dyspnea, Denies wheezing and Denies other (shortness of breath) Musc Denies numbness and Denies tingling Neuro Details: Forgetfulness Denies dizziness, Denies headache(s), Denies numbness, Denies tingling and Denies weakness Psych Denies anxiety and Denies depression Endo Reports fatigue Aller/Immun Denies wheezing Physical exam (Primary Care) Vital Signs: Last Vital Signs Pulse 58 04/20/24 10:45 BP 98/60 04/20/24 10:45 Pulse Ox 98 04/20/24 10:45 Oxygen Delivery Method Room Air 04/20/24 10:45 BMI result Body Mass Index 23.3 Tobacco/Smoking Status: Tobacco use Status Tobacco use date assessed 04/20/24 04/20/24 10:53 Patient Tobacco Use Status Never used Tobacco 04/20/24 10:47 e-Cigarette/Vaping Use Never Used 04/20/24 10:47 PHQ-9: PHQ-9 Score PHQ-9: Total score 9 04/20/24 11:06 Depression Screening Interpretation: Positive Thrive Assessment: Date of Thrive Assessment Date Thrive assessed 04/20/24 04/20/24 11:00 Const General: well developed; No acute distress Nutritional Appearance: well nourished Orientation/consciousness: patient oriented x3 HENMT Head: Yes normocephalic and Yes atraumatic Eyes General: appearance normal, both eyes and all related structures Pupils: Equal, round and reactive pupils present EOM: EOMs intact bilaterally Resp Effort & Inspection: normal respiratory effort Auscultation: clear to auscultation bilaterally Cardio Rate: regular rate Rhythm: regular rhythm Heart sounds: S1 normal heart sound present, S2 normal heart sound present, no gallops, no murmurs and no rubs Neuro General: patient oriented x3 and No gait normal Cranial nerves: Yes Equal, round and reactive pupils present Psych Affect: normal affect Assessment and Plan Assessment & Plan (1) Essential hypertension: Code(s): I10 - Essential (primary) hypertension Plan: Blood?pressure?is?a?little?low?and?patient?has?already?discontinued?his?antihype rtensive?medications. Encouraged?him?to?hydrate?well Removed?medications?from?patient's?med?list Will?continue?to?follow (2) Normocytic anemia: Code(s): D64.9 - Anemia, unspecified Plan: This?has?improved?with?addition?of?OTC?iron Still?mildly?low Continue?iron?for?now?and?we?will?continue?to?monitor (3) Fatigue: Code(s): R53.83 - Other fatigue Plan: Still?has?ongoing?fatigue. Will?continue?to?monitor Continue?iron (4) Memory changes: Code(s): R41.3 - Other amnesia Plan: Memory?changes?as?well?as?unsteady?gait. Referred?to?neuropsychiatry Check?MRI?brain (5) Unsteady gait: Code(s): R26.81 - Unsteadiness on feet Plan: As?above Orders: Orders MR head/brain wo/w con Today R26.81 - Unsteadiness on feet, R41.3 - Other amnesia Vitamin B12 and Folate Today D64.9 - Anemia, unspecified, E53.8 - Deficiency of other specified B group vitamins Complete Blood Count Auto Diff Today D64.9 - Anemia, unspecified, Z00.00 - Encounter for general adult medical examination without abnormal findings Reticulocyte Count Today D64.9 - Anemia, unspecified Ferritin Today D64.9 - Anemia, unspecified Referrals Neuropsychiatry Referral R26.81 - Unsteadiness on feet, R41.3 - Other amnesia Medications: Discontinued losartan Discontinued Reason: Doctor's Order 100 mg PO DAILY 90 days 90 tabs 4RF hydrochlorothiazide Discontinued Reason: Doctor's Order 25 mg PO DAILY 90 days 90 tabs 3RF doxycycline hyclate Discontinued Reason: Patient Completed Course 100 mg PO BID 20 tabs 0RF Coding Level of Care Code Est Pt Level 4 (99546) Diagnoses Essential hypertension I10 Normocytic anemia D64.9 Fatigue R53.83 Memory changes R41.3 Unsteady gait R26.81
== END 2024-04-20 11:20 | disposition home or self-care (01) ==
PROVIDERS: PCP Family Medicine; Visit Provider Family Medicine
DX: I10 Essential (primary) hypertension (principal); D64.9 Anemia, unspecified; R53.83 Other fatigue; R41.3 Other amnesia; R26.81 Unsteadiness on feet
CPT/HCPCS: 99214

== ENCOUNTER 2024-05-18 20:16 | Outpatient (REF) | payer MEDICARE, SELFPAY ==
--- NOTE | ~2024-05-18 | MR_ITS ---
EXAMINATION: MR BRAIN WITHOUT CONTRAST CLINICAL INFORMATION: Amnesia COMPARISON: None TECHNIQUE: Multiplanar multisequence MR imaging of the brain was obtained without intravenous contrast. FINDINGS: There is no acute infarct on diffusion-weighted imaging. There is no intracranial hemorrhage on iron-sensitive imaging. No extra-axial collection or mass effect/herniation. Scattered periventricular and deep white matter T2 FLAIR hyperintensities consistent with mild underlying microangiopathy. No hydrocephalus. The ventricles are normal in morphology and size. The major flow voids at the skull base are preserved. The midline structures are normal. The cerebellar tonsils are normally positioned. The craniocervical junction is normal. Marrow signal is within normal limits. The visualized soft tissues are without significant abnormality. Right greater than left ethmoid and maxillary sinus mucosal thickening. MR/MR head/brain wo con IMPRESSION: Mild chronic microangiopathy. Otherwise unremarkable noncontrast MRI of the brain. Electronically signed by: Aniket Roberts MD 06/12/2024 04:39 PM EDT
== END 2024-05-18 20:17 | disposition home or self-care (01) ==
LOC: HO.MRI 20:16
PROVIDERS: PCP Family Medicine; Visit Provider Family Medicine
DX: R41.3 Other amnesia (principal); R26.81 Unsteadiness on feet
CPT/HCPCS: 70551

== ENCOUNTER 2024-10-07 08:53 | Outpatient (AMB) | payer MEDICARE, SELFPAY ==
--- NOTE | 2024-10-07 09:07 | MHC.PC.OV ---
Vital Signs 10/07/24 09:13 Height 5 ft 8 in Weight 160 lb 4 oz BMI 24.4 BP 110/70 Blood Pressure Location Rt brachial Position Sitting Respiration 16 Pulse 64 Pulse Source Pulse Oximeter Pulse Oximetry (%) 97 Oxygen Delivery Method Room Air Intake Visit Reasons: Extended exam with f/u labs and health maint Intake Note: extended exam Allergies lisinopril Allergy (Unknown, Verified 10/07/24 09:09) cough Medication List - Last Reconciled 10/07/24 by Shaun Villa MD atorvastatin 20 mg PO DAILY 90 days hydrochlorothiazide 25 mg PO DAILY losartan 100 mg PO DAILY 90 days Tobacco use date assessed: 04/20/24 Fall risk assessment: No Falls in past year Last assessed Fall Risk: 10/07/24 Dental Screening Dental Screen Date: 10/07/24 Did you have a dental visit in the last 12 months?: Yes Did you have a dental problem in the last 6 months where you did not have access to dental care?: No PFSH Medical History No pertinent past medical history Surgical History H/O total cystectomy H/O microdiscectomy S/P ORIF (open reduction internal fixation) fracture History of inguinal herniorrhaphy Family History (Updated 04/20/24 @ 10:52 by Maddison Croft CMA) Family/Other Cardiovascular disease High cholesterol Mild late onset Alzheimer's dementia Sister Stroke Brother Substance abuse in family Social History Housing: House Patient Tobacco Use Status: Never used Tobacco e-Cigarette/Vaping Use: Never Used service: No Current occupational status: retired Current occupational exposures/hazards: No Cognitive needs: No Hearing needs: No Vision needs: No Questionnaire PHQ-9 Over the last 2 weeks, how often have you been bothered by any of the following problems? 1. Little interest or pleasure in doing things: not at all 2. Feeling down, depressed, or hopeless: not at all 3. Trouble falling or staying asleep, or sleeping too much: not at all 4. Feeling tired or having little energy: several days 5. Poor appetite or overeating: not at all 6. Feeling bad about yourself - or that you are a failure or have let yourself or your family down: not at all 7. Trouble concentrating on things, such as reading the newspaper or watching television: not at all 8. Moving or speaking so slowly that other people could have noticed. Or the opposite - being so fidgety or restless that you have been moving around a lot more than usual: not at all 9. Thoughts that you would be better off or of hurting yourself in some way: not at all Total score: 1 Depression Screening Interpretation: Negative Depression Screening Done: Yes 98304 - PHQ-9 Billing: Yes Source: Developed by Drs. Alireza Curry, Irena Caro, Michael Mackay and colleagues, with an educational lisa from [employer]. Thrive Questionnaire Date Thrive assessed: 10/07/24 I am a: Patient What is your living situation today?: I have a steady place to live Within the past 12 months, did the food you bought not last and you didn't have the money to get more?: Never true Within the past 12 months, did you worry whether your food would run out before you got money to buy more?: Never true Do you have trouble paying for medicines?: No Do you have trouble getting transportation to medical appointments?: No Do you have trouble paying your heating and electricity bill?: No Do you have trouble taking care of your child, family member or friend?: No Do you have trouble with day-to-day activities such as bathing, preparing meals, shopping, managing finances, etc.?: No Are you currently unemployed and looking for a job?: No Are you interested in more education?: No Please select the resources that you would like help with: None Currently or been in a relationship where the following occur: No concerns reported THRIVE Score: 0 AUDIT C Alcohol Use Questionnaire (AUDIT-C) 1. How often do you have a drink containing alcohol?: Monthly or less Total Score: 1 HILLARY-7 AMB Questionnaire HILLARY-7 Date HILLARY - 7 assessed: 10/07/24 Feeling nervous, anxious, or on edge: 0 = Not at all Not being able to stop or control worryin = Several days Worrying too much about different things: 1 = Several days Trouble relaxin = Several days Being so restless that it is hard to sit still: 0 = Not at all Becoming easily annoyed or irritable: 1 = Several days Feeling afraid as if something awful might happen: 0 = Not at all Total HILLARY-7 score (0-4 normal; 5-9 mild; 10-14 moderate; 15-21 severe): 4 Source: Developed by Drs. Alireza Curry, Irena Caro, Michael Mackay and colleagues, with an educational lisa from [employer]. HILLARY-7 Assessment Billing HILLARY-7 Assessment Tool: HILLARY-7 Assessment 93197 Physical exam (Primary Care) Vital Signs: Last Vital Signs Pulse 64 10/07/24 09:13 Resp 16 10/07/24 09:13 BP 110/70 10/07/24 09:13 Pulse Ox 97 10/07/24 09:13 Oxygen Delivery Method Room Air 10/07/24 09:13 BMI result Body Mass Index 24.4 Tobacco/Smoking Status: Tobacco use Status Tobacco use date assessed 04/20/24 10/07/24 09:16 Patient Tobacco Use Status Never used Tobacco 10/07/24 09:16 e-Cigarette/Vaping Use Never Used 10/07/24 09:16 PHQ-9: PHQ-9 Score PHQ-9: Total score 1 10/07/24 09:16 Depression Screening Interpretation: Negative Thrive Assessment: Date of Thrive Assessment Date Thrive assessed 10/07/24 10/07/24 09:16 Currently or been in a relationship where the following occur: No concerns reported Coding Level of Care Code Est Pt Level 4 (73831) Diagnoses Sun-damaged skin L57.8 Urinary frequency R35.0 Colon polyps K63.5 Screening for colon cancer Z12.11 Screening for prostate cancer Z12.5 Memory changes R41.3 Essential hypertension I10 Hyperlipidemia E78.5 Additional Codes HILLARY-7 Assessment Billing - HILLARY-7 Assessment Tool: HILLARY-7 Assessment 20871 ([id number]) PHQ-9 - 39819 - PHQ-9 Billing: Yes ([id number]) Assessment & Plan Assessment & Plan (1) Sun-damaged skin: Code(s): L57.8 - Other skin changes due to chronic exposure to nonionizing radiation Category: Medical Plan: Referred?to?dermatology (2) Urinary frequency: Code(s): R35.0 - Frequency of micturition Category: Medical Plan: Urinary?frequency?without?dysuria Patient?says?he?has?had?a?workup?with?urology?few?years?ago?and?has?not?had?any?changes?but?would?like?to?report?these?symptoms Checking?urinalysis Also?checking?PSA?level Will?investigate?further?with?additional?labs?if?needed?or?make?a?referral?to?urology. Patient?has?tried?urinary?meds?in?the?past?which?caused?dry?mouth (3) Colon polyps: Code(s): K63.5 - Polyp of colon Category: Medical Plan: Patient?saw??Yao?in?2017?and?was?recommended?to?follow-up?in?2021 Referred?back?to?his?GI?specialist (4) Screening for colon cancer: Code(s): Z12.11 - Encounter for screening for malignant neoplasm of colon Category: Medical Plan: As?above (5) Screening for prostate cancer: Code(s): Z12.5 - Encounter for screening for malignant neoplasm of prostate Category: Medical Plan: Check?PSA (6) Memory changes: Code(s): R41.3 - Other amnesia Category: Medical Plan: Ongoing?memory?issues He?was?referred?to?neuropsychiatry?and?is?wait?list He?had?an?MRI?which?showed?mild?microangiopathy?but?nothing?else. Blood?pressure?is?well?controlled?and?he?is?on?atorvastatin?for?cholesterol. He?started?himself?on?a?baby?aspirin?and?we?discussed?I?think?this?is?fine?but?he?will?discontinue?if?he?has?any?adverse?effects.??No?history?of?GI?bleeding. (7) Essential hypertension: Code(s): I10 - Essential (primary) hypertension Category: Medical Plan: Blood?pressure?is?controlled. Continue?current?medication (8) Hyperlipidemia: Code(s): E78.5 - Hyperlipidemia, unspecified Category: Medical Plan: Continue?atorvastatin?and?recheck?lipids Plan Urgency/dribbling Orders: Orders Comprehensive [place]. Panel Fast Today Z00.00 - Encounter for general adult medical examination without abnormal findings Complete Blood Count Auto Diff Today Z00.00 - Encounter for general adult medical examination without abnormal findings Lipid Panel Today Z00.00 - Encounter for general adult medical examination without abnormal findings Microalbumin, Random (w Creat) Today I10 - Essential (primary) hypertension Vitamin B12 and Folate Today E53.8 - Deficiency of other specified B group vitamins Prostate Specific Antigen Scr Today Z12.5 - Encounter for screening for malignant neoplasm of prostate TSH reflex Free T4 Today Z00.00 - Encounter for general adult medical examination without abnormal findings UA and rflx microscopic Today Z00.00 - Encounter for general adult medical examination without abnormal findings Referrals Gastroenterology Referral K63.5 - Polyp of colon, Z12.11 - Encounter for screening for malignant neoplasm of colon Dermatology Referral L57.8 - Other skin changes due to chronic exposure to nonionizing radiation
[2024-10-07 09:13] VITALS: BP 110/70; PULSE 64; RESP 16; O2SAT 97; BMI 24.4
== END 2024-10-07 10:04 | disposition home or self-care (01) ==
PROVIDERS: PCP Family Medicine; Visit Provider Family Medicine
DX: L57.8 Other skin changes due to chronic exposure to nonionizing radiation (principal); R35.0 Frequency of micturition; K63.5 Polyp of colon; Z12.11 Encounter for screening for malignant neoplasm of colon; Z12.5 Encounter for screening for malignant neoplasm of prostate; R41.3 Other amnesia; I10 Essential (primary) hypertension; E78.5 Hyperlipidemia, unspecified

== ENCOUNTER → 2024-10-07 08:53 | Outpatient (BNVA) | payer MEDICARE, SELFPAY | PROVIDERS: PCP Family Medicine; Visit Provider Family Medicine | DX: Z00.00 Encounter for general adult medical examination without abnormal findings (principal); I73.9 Peripheral vascular disease, unspecified; L57.8 Other skin changes due to chronic exposure to nonionizing radiation; R35.0 Frequency of micturition; K63.5 Polyp of colon; I10 Essential (primary) hypertension; R41.3 Other amnesia; E78.5 Hyperlipidemia, unspecified; E53.8 Deficiency of other specified B group vitamins; Z12.5 Encounter for screening for malignant neoplasm of prostate | CPT/HCPCS: 96127; 99212 ==

== ENCOUNTER 2024-10-07 10:26 | Outpatient (REF) | payer MEDICARE, SELFPAY ==
[2024-10-07 14:35] LABS: MANUAL DIFF FLAG NO
[2024-10-07 14:36] LABS: Appearance Urine Clear; Color Urine Yellow; Glucose Urine UA Negative (Negative); Leukocyte Esterase Urine Negative (Negative); Nitrite Urine Negative (Negative); Urine Blood Negative (Negative); Urine Ketones Negative (Negative); Urine Protein Trace mg/dL (Neg-Trace)
[2024-10-07 14:41] LABS: Basophils Absolute Auto 0.1 X10*3/uL (0.0-0.2); Eosinophils Absolute Auto 0.2 X10*3/uL (0.0-0.4); Eosinophils Percent Auto 3.7 % (0-4); Hematocrit 41.2 % (42.0-52.0); Hemoglobin 13.5 g/dl (14.0-18.0); Imm Gran Abs Auto 0.01 X10*3/uL (0.00-0.03); Imm Gran Pct Auto 0.2 % (0.0-0.4); Lymphocytes Absolute Auto 1.1 X10*3/uL (1.2-4.9); Lymphocytes Percent Auto 21.9 % (20-40); Mean Corpuscular HGB Conc 32.8 g/dl (31.0-36.0); Mean Corpuscular Hemoglobin 31.5 pg (27.0-33.0); Mean Platelet Volume 10.9 fL (9.4-12.4); Monocytes Absolute Auto 0.5 X10*3/uL (0.1-1.2); Monocytes Percent Auto 8.7 % (2-11); Neutrophils Absolute Auto 3.3 x10*3/uL (2.0-8.3); Neutrophils Percent Auto 64.5 % (45-73); Platelet Count 214 X10*3/uL (160-400); Red Blood Count 4.29 X10*6/uL (4.60-5.80); Red Cell Distribution Width 12.9 % (11.0-16.0); White Blood Count 5.2 X10*3/uL (4.8-10.8)
[2024-10-07 14:57] LABS: Alanine Aminotransferase 31 U/L (0-40); Alkaline Phosphatase 56 U/L (39-117); Anion Gap 8 (12-20); Aspartate Amino Transferase 37 U/L (5-37); Bilirubin Total 0.9 mg/dL (0.0-1.0); Blood Urea Nitrogen 19 mg/dL (9-16); Calcium 8.9 mg/dL (8.4-10.2); Carbon Dioxide 30 mmol/L (22-29); Chloride 106 mmol/L (96-108); Cholesterol 170 mg/dL (<200); Estimated Glomerular Filt Rate > 60; Glucose Fasting 97 mg/dL (60-99); HDL Cholesterol 57 mg/dL (>40); LDL Cholesterol Calculated 100 mg/dL (<100); Sodium 140 mmol/L (135-145); Triglycerides 65 mg/dL (<150)
[2024-10-07 14:59] LABS: Creatinine Urine 139.16 mg/dL; Microalbum/Creatinine Ratio Ur 5.7 ug/mg cr (<30)
[2024-10-07 15:23] LABS: Folate 10.3 ng/mL (> or = 4.0); Prostate Specific Antigen Scr 0.83 ng/mL (<0.05-4.0); Vitamin B12 385 pg/mL (200-900)
[2024-10-07 15:32] LABS: TSH reflex Free T4 1.26 uIU/mL (0.32-4.0)
== END 2024-10-07 10:27 | disposition home or self-care (01) ==
LOC: HO.WFDLDS 10:26
PROVIDERS: Visit Provider Family Medicine
DX: Z00.00 Encounter for general adult medical examination without abnormal findings (principal); Z12.5 Encounter for screening for malignant neoplasm of prostate; I10 Essential (primary) hypertension; E53.8 Deficiency of other specified B group vitamins
CPT/HCPCS: 36415; 80053; 80061; 81003; 82043; 82570; 82607; 82746; 84153; 84443; 85025

== ENCOUNTER 2024-11-11 16:59 | Outpatient (AMB) | payer MEDICARE, SELFPAY ==
--- NOTE | 2024-11-11 16:48 | A.OFFPC_ITS ---
Intake Visit Reasons: Follow-up?CPE-labs?and?health?maintenance Allergies lisinopril Allergy (Unknown, Verified 11/11/24 16:48) cough Tobacco use date assessed: 04/20/24 Dental Screening Dental Screen Date: 10/07/24 HPI Follow-up?CPE-labs?and?health?maintenance HPI Details 74 y/o male presents to f/u labs via tel emedicine. Labs drawn 10/07/24. Reviewed labs with pt. Improving anemia. Had started an iron supplement. Triglycerides 65. TC 170. LDL 100. HDL 57. Notes ongoing memory changes. [facility] Medical History No pertinent past medical history Surgical History H/O total cystectomy H/O microdiscectomy S/P ORIF (open reduction internal fixation) fracture History of inguinal herniorrhaphy Family History (Updated 04/20/24 @ 10:52 by Maddison Croft CMA) Family/Other Cardiovascular disease High cholesterol Mild late onset Alzheimer's dementia Sister Stroke Brother Substance abuse in family Social History Housing: House Patient Tobacco Use Status: Never used Tobacco e-Cigarette/Vaping Use: Never Used service: No Current occupational status: retired Current occupational exposures/hazards: No Cognitive needs: No Hearing needs: No Vision needs: No Questionnaire Thrive Questionnaire Date Thrive assessed: 10/01/24 I am a: Patient What is your living situation today?: I have a steady place to live Within the past 12 months, did the food you bought not last and you didn't have the money to get more?: Never true Within the past 12 months, did you worry whether your food would run out before you got money to buy more?: Never true Do you have trouble paying for medicines?: No Do you have trouble getting transportation to medical appointments?: No Do you have trouble paying your heating and electricity bill?: No Do you have trouble taking care of your child, family member or friend?: No Do you have trouble with day-to-day activities such as bathing, preparing meals, shopping, managing finances, etc.?: No Are you currently unemployed and looking for a job?: No Are you interested in more education?: No Please select the resources that you would like help with: None Currently or been in a relationship where the following occur: No concerns reported THRIVE Score: 0 AUDIT C Alcohol Use Questionnaire (AUDIT-C) 2. How many drinks containing alcohol do you have on a typical day when you are drinking?: 1 or 2 3. How often do you have six or more drinks on one occasion?: Never Total Score: 0 HILLARY-7 AMB Questionnaire HILLARY-7 Date HILLARY - 7 assessed: 10/07/24 Source: Developed by Drs. Alireza Curry, Irena Caro, Michael Mackay and colleagues, with an educational lisa from [employer]. Review of Systems Const Denies chills, Denies fatigue, Denies fever(s), Denies headache(s) and Denies weakness ENT Denies dizziness and Denies headache(s) Card Denies dyspnea Resp Denies cough, Denies dyspnea, Denies wheezing and Denies other (shortness of breath) Musc Denies numbness and Denies tingling Neuro Denies dizziness, Denies headache(s), Denies numbness, Denies tingling and Denies weakness Psych Denies anxiety and Denies depression Endo Denies fatigue Aller/Immun Denies wheezing Physical exam (Primary Care) Tobacco/Smoking Status: Tobacco use Status Tobacco use date assessed 04/20/24 11/11/24 16:50 Patient Tobacco Use Status Never used Tobacco 11/11/24 16:50 e-Cigarette/Vaping Use Never Used 11/11/24 16:50 Thrive Assessment: Date of Thrive Assessment Date Thrive assessed 10/01/24 11/11/24 16:50 Currently or been in a relationship where the following occur: No concerns reported Telehealth Telehealth Telehealth Platform: Telephone Location of provider rendering services: practice address Location of patient: address on file Patient Identification confirmed using: Name, : Yes Telehealth method: voice only Patient verbally consented to treatment: Yes Patient verbally consented to billing insurance company: Yes Patient informed of any privacy concerns related to visit: Yes Minutes spent on Phone/Video with Pt.: 15 Coding Level of Care Code Tele Est Pt Level 2 (48015) Diagnoses Hyperlipidemia E78.5 Screening for prostate cancer Z12.5 Mild anemia D64.9 Urinary frequency R35.0 Memory changes R41.3 Assessment & Plan Assessment & Plan (1) Hyperlipidemia: Code(s): E78.5 - Hyperlipidemia, unspecified Category: Medical Plan: LDL?cholesterol?is?borderline?elevated?on?atorvastatin?20?mg?daily. HDL?ratios?good Encouraged?a?diet?lower?in?saturated?fats?and?cholesterol Continue?atorvastatin?as?prescribed (2) Screening for prostate cancer: Code(s): Z12.5 - Encounter for screening for malignant neoplasm of prostate Category: Medical Plan: PSA?is?within?normal?limits Patient?does?get?some?mild?stress?incontinence?and?drefrain Had?discussed?medicatio ns?he?has?declined?but?will?let?know?if?changes?mind?see?below (3) Mild anemia: Code(s): D64.9 - Anemia, unspecified Category: Medical Plan: Mild?anemia Patient?had?started?an?OTC?iron?supplement?and?retic?count?H&H?begin?increasing Continue?iron Will?continue?monitor?periodically (4) Urinary frequency: Code(s): R35.0 - Frequency of micturition Category: Medical Plan: No?dysuria Patient?had?seen??past.??Had?discussed?medications?such?as?tamsulosin . Patient?declines?these?for?now. He?will?me?know?if?he?changes?his?mind?or?has?any?new,?concerning?symptoms. 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 Had?made?a?referral?to?neuropsychiatry.??Patient?has?not?heard?back?despite?abou t?6?months?waiting. Will?ask?the?office?to?look?into?the?status?of?this?re ferral?facilitate?scheduled Of?note?also,?patient?had?spoken?to? whom?he?knows?though?there?does?not?seem?be definitive discussion?of?his?symptoms?a?diagnosis.
== END 2024-11-11 17:05 | disposition home or self-care (01) ==
LOC: HO.HMCFM 16:59
PROVIDERS: PCP Family Medicine; Visit Provider Family Medicine
DX: E78.5 Hyperlipidemia, unspecified (principal); Z12.5 Encounter for screening for malignant neoplasm of prostate; D64.9 Anemia, unspecified; R35.0 Frequency of micturition; R41.3 Other amnesia